=== PATIENT | male | born 1965 | race Caucasian/White ===

== ENCOUNTER 2017-12-08 10:54 | Day surgery (SDC) | payer MEDICARE, MEDICAID ==
[~2017-12-08] VITALS: Ht 182.9 cm; Wt 81.8 kg
[~2017-12-08 10:54] MED LIST: B-121000 MCG PO; CALCIUM 600-D 61 TAB PO; COLACE 100100 MG/CAP PO; DUO-KAPS1 CAP PO; GALZIN50 MG PO; LIORESAL 1010 MG/TAB PO; MAGNESIUM500 MG PO; MIRALAX PA17 GM/Dose PO; NYSTATIN POWDER15 GM TOP; OXYGEN MC; PROTONIX 40MG T40 MG PO; ROXICODONE 55 MG/TAB PO; THE MEDICINE S200 M2 PO; TUMS500 MG PO; TYLENOL 325MG325 MG PO; VITAMINC1000TA PO; [UNRECOGNIZED DRUG - OTHER]
[2017-12-08 12:06] VITALS: BP 124/73; PULSE 71; TEMP 98.1
[2017-12-08] MEDS ORDERED: ZOLOFT 50MG50 MG PO (12:40)
[2017-12-08 14:35] VITALS: BP 131/79; PULSE 87; TEMP 97.5
[2017-12-08 14:50] VITALS: BP 126/72; PULSE 82
[2017-12-08 15:05] VITALS: BP 135/88; PULSE 88
[2017-12-08] MEDS ORDERED: NORCO 325 MG-51 TAB PO (15:09)
[2017-12-08] MEDS ORDERED: SENOKOT S 50 MG1 TAB PO (15:10)
== END 2017-12-08 16:00 ==
LOC: SDCO 10:54 → EDBD 13:00 → SDCO 13:00
DX: N31.9 Neuromuscular dysfunction of bladder, unspecified (principal); R33.9 Retention of urine, unspecified; K21.9 Gastro-esophageal reflux disease without esophagitis; G35 Multiple sclerosis; G11.9 Hereditary ataxia, unspecified
CPT/HCPCS: C1769; J0690; J2405; J2704; J3010; J7120

== ENCOUNTER 2018-03-24 09:39 | Day surgery (SDC) | payer MEDICARE, MEDICAID ==
[~2018-03-24] VITALS: Ht 182.9 cm; Wt 80.9 kg
[~2018-03-24 09:39] MED LIST changes: +NORCO 325 MG-51 TAB PO; +SENOKOT S 50 MG1 TAB PO; +ZOLOFT 50MG50 MG PO
[2018-03-24] MEDS ORDERED: MOBIC 7.5MG7.5 MG PO (10:33)
[2018-03-24] MEDS ORDERED: FLOMAX 0.40.4 MG/CAP PO (10:35)
[2018-03-24] MEDS ORDERED: THERA1 TAB PO (10:36)
[2018-03-24] MEDS ORDERED: TYLENOL 325MG325 MG PO (10:38)
[2018-03-24 10:40] VITALS: BP 124/74; PULSE 74; TEMP 98
[2018-03-24 11:20] VITALS: BP 123/77; PULSE 70; TEMP 97.6
[2018-03-24 11:30] VITALS: BP 123/78; PULSE 78
[2018-03-24 11:45] VITALS: BP 114/61; PULSE 71
== END 2018-03-24 12:15 ==
LOC: SDCO 09:39
DX: K21.0 Gastro-esophageal reflux disease with esophagitis (principal); K31.84 Gastroparesis; K59.00 Constipation, unspecified; G11.9 Hereditary ataxia, unspecified; G35 Multiple sclerosis; G71.0 Muscular dystrophy; G89.29 Other chronic pain; Z79.899 Other long term (current) drug therapy; Z99.3 Dependence on wheelchair; F41.9 Anxiety disorder, unspecified; F32.9 Major depressive disorder, single episode, unspecified; R25.2 Cramp and spasm; G70.9 Myoneural disorder, unspecified
CPT/HCPCS: J2704; J3010; J7120